=== PATIENT | female | born 1945 ===

== ENCOUNTER → 2017-04-21 | Outpatient (CLI) | payer OTHER | END | disposition home or self-care (01) | LOC: RAD 11:31 | DX: S22.089A Unspecified fracture of T11-T12 vertebra, initial encounter for closed fracture (principal) ==

== ENCOUNTER → 2017-05-05 | Outpatient (CLI) | payer OTHER | END | disposition home or self-care (01) | LOC: MAMO-SONO 14:15 | DX: Z12.31 Encounter for screening mammogram for malignant neoplasm of breast (principal); Z87.898 Personal history of other specified conditions; N60.11 Diffuse cystic mastopathy of right breast ==

== ENCOUNTER 2017-12-08 07:35 | Outpatient (CLI) | payer OTHER | END 2017-12-08 08:03 | disposition home or self-care (01) | LOC: NUCLEAR 07:35 | DX: R07.89 Other chest pain (principal); Z09 Encounter for follow-up examination after completed treatment for conditions other than malignant neoplasm | CPT/HCPCS: 78452; 93017; A9500 ==